=== PATIENT | female | born 1975 | race Caucasian/White ===

== ENCOUNTER 2018-06-13 09:19 | Inpatient (IN) | payer OTHER ==
[~2018-06-13] VITALS: Ht 162.6 cm; Wt 47.1 kg
[2018-06-13 10:05] LABS: Calcium, Ionized (POC) 0.92 mmol/L (1.10-1.46); Chloride (POC) 72 mmol/L (98-108); Creatinine (POC) 0.8 mg/dL (0.6-1.0); Glucose (ISTAT POC) 164 mg/dL (70-99); Hemoglobin (POC) 7.8 g/dL (12.0-16.0); Potassium (POC) <2.0 mmol/L (3.5-5.5); Sodium (POC) 122 mmol/L (135-148); Total CO2 (POC) 30 mmol/L (21-32)
[2018-06-13 10:20] LABS: Magnesium, Blood 1.9 mg/dL (1.6-2.4)
[2018-06-13 10:22] LABS: Hematocrit 22.7 % (33.0-51.0); Hemoglobin 7.8 g/dL (11.5-16.0); Mean Corpuscular HGB 35.5 pg (26.0-34.0); Mean Corpuscular HGB Conc 34.4 g/dL (31.5-36.5); Mean Corpuscular Volume 103 fL (80-100); Platelet Count 349 K/mm3 (150-400); RDW Coefficient Variation 13.7 % (11.7-14.2); RDW Standard Deviation 51.3 fL (35.1-46.3)
[2018-06-13 10:34] LABS: Alanine Aminotransfer (ALT/SGP 17 U/L (12-78); Albumin, Blood 3.1 g/dL (3.4-5.0); Albumin/Globulin Ratio 0.6 (0.8-1.8); Alk Phos 162 U/L (50-136); Anion Gap 17 mmol/L (6-16); Aspartate Aminotrans (AST/SGOT 90 U/L (12-37); Bilirubin, Total 4.6 mg/dL (0.1-1.0); Blood Urea Nitrogen 12 mg/dL (8-24); CO2, Blood 31 mmol/L (21-32); Calcium, Blood 8.8 mg/dL (8.5-10.1); Chloride, Blood 73 mmol/L (98-108); Creatinine, Blood 0.75 mg/dL (0.40-1.00); Globulin, Blood 5.1 g/dL (2.2-4.0); Glomerular Filtration Rate >60 (60-); Glucose, Blood 161 mg/dL (70-99); Potassium, Blood 2.2 mmol/L (3.5-5.5); Sodium, Blood 121 mmol/L (136-145); Total Protein, Blood 8.2 g/dL (6.4-8.2)
[2018-06-13 10:51] LABS: BAND PERCENT MAN 2 % (0-8); BASOPHILS PERCENT MAN 0 % (0-2); EOSINOPHILS PERCENT MAN 0 % (0-6); LYMPHOCYTES ABSOLUTE MAN 0.87 K/mm3 (0.84-5.20); LYMPHOCYTES PERCENT MAN 3 % (21-46); METAMYELOCYTE ABSOLUTE MAN 0.29 K/mm3 (0.00-0.00); METAMYELOCYTE PERCENT MAN 1 % (0-0); MONOCYTES ABSOLUTE MAN 0.87 K/mm3 (0.16-1.47); MONOCYTES PERCENT MAN 3 % (4-13); NEUTROPHILS ABSOLUTE MAN 26.97 K/mm3 (1.96-9.15); SEG NEUTROPHILS PERCENT MAN 91 % (41-73); TOTAL CELLS COUNTED 100
[2018-06-13 12:50] LABS: Source, Urine Clean Catch
[2018-06-13 12:54] LABS: Bilirubin, Urine Neg (Neg); Blood, Urine Neg (Neg); Glucose Qualitative, Urine Neg (Neg); Ketones, Urine Neg (Neg); Leukocyte Esterase, Urine Neg (Neg); Nitrite, Urine Neg (Neg); Protein, Urine 1+ (Neg); Specific Gravity, Urine 1.005 (1.003-1.022); Urobilinogen, Urine NORM (Normal); pH, Urine 6.5 (5.0-8.0)
[2018-06-13 13:10] LABS: Color, Urine Yellow (P-Yellow)
[2018-06-13 13:11] LABS: Appearance, Urine Clear (Clear)
[2018-06-13 13:22] LABS: Percent Saturation 41.3 % (15.0-50.0)
[2018-06-13 13:41] LABS: Thyroid Stimulating Hormone 4.84 uIU/mL (0.360-4.800)
[2018-06-13 14:43] LABS: PCO2 Arterial 37.5 mmHg (35-45); PO2 Arterial 77.3 mmHg (80-100); pH Blood Arterial 7.59 (7.35-7.45)
[2018-06-13 16:53] LABS: International Normalized Ratio 1.46; Prothrombin Time Results 14.7 Sec (9.7-11.5)
[2018-06-13 17:50] LABS: Hematocrit 26.7 % (33.0-51.0); Hemoglobin 9.3 g/dL (11.5-16.0)
[2018-06-13 18:31] LABS: Anion Gap 15 mmol/L (6-16); Blood Urea Nitrogen 10 mg/dL (8-24); Bun/Creatinine Ratio 23.1 (12.0-20.0); CO2, Blood 24 mmol/L (21-32); Chloride, Blood 89 mmol/L (98-108); Creatinine, Blood 0.43 mg/dL (0.40-1.00); Glomerular Filtration Rate >60 (60-); Glucose, Blood 79 mg/dL (70-99); Sodium, Blood 128 mmol/L (136-145)
[2018-06-13 18:33] LABS: Calcium, Blood 6.7 mg/dL (8.5-10.1)
[2018-06-13 19:47] LABS: Source, Urine Catheter
[2018-06-13 19:50] LABS: Bilirubin, Urine Neg (Neg); Blood, Urine Neg (Neg); Glucose Qualitative, Urine Neg (Neg); Ketones, Urine Neg (Neg); Leukocyte Esterase, Urine 1+ (Neg); Nitrite, Urine Neg (Neg); Protein, Urine 2+ (Neg); Urobilinogen, Urine NORM (Normal)
[2018-06-13 20:22] LABS: Appearance, Urine Cloudy (Clear); Color, Urine Amber (P-Yellow)
[2018-06-13 20:23] LABS: Squamous Epithelial Cells Mod /hpf (Few)
[2018-06-13 20:24] LABS: Bacteria Few /hpf; Red Blood Cells, Urine Not Seen /hpf (0-2)
[2018-06-13 20:25] LABS: Mucus Light (0-Heavy)
[2018-06-14 04:19] LABS: BASOPHILS ABSOLUTE AUTO 0.08 K/mm3 (0.00-0.23); BASOPHILS PERCENT AUTO 0 % (0-2); EOSINOPHILS ABSOLUTE AUTO 0.03 K/mm3 (0.00-0.68); EOSINOPHILS PERCENT AUTO 0 % (0-6); Hematocrit 28.2 % (33.0-51.0); Hemoglobin 9.9 g/dL (11.5-16.0); IMMATURE GRAN ABSOLUTE AUTO 0.17 K/mm3 (0.00-0.10); IMMATURE GRAN PERCENT AUTO 1 % (0-1); LYMPHOCYTES ABSOLUTE AUTO 1.51 K/mm3 (0.84-5.20); LYMPHOCYTES PERCENT AUTO 6 % (21-46); MONOCYTES ABSOLUTE AUTO 1.45 K/mm3 (0.16-1.47); MONOCYTES PERCENT AUTO 6 % (4-13); Mean Corpuscular HGB 34.1 pg (26.0-34.0); Mean Corpuscular HGB Conc 35.1 g/dL (31.5-36.5); Mean Platelet Volume 8.9 fL (9.1-12.4); NEUTROPHILS PERCENT AUTO 88 % (41-73); Platelet Count 267 K/mm3 (150-400); RDW Coefficient Variation 19.6 % (11.7-14.2); White Blood Cell Count 26.44 K/mm3 (4.00-11.30)
[2018-06-14 04:33] LABS: Mean Corpuscular Volume 97 fL (80-100)
[2018-06-14 04:34] LABS: International Normalized Ratio 1.44; Prothrombin Time Results 14.5 Sec (9.7-11.5)
[2018-06-14 04:40] LABS: Alanine Aminotransfer (ALT/SGP 12 U/L (12-78); Albumin, Blood 2.1 g/dL (3.4-5.0); Alk Phos 111 U/L (50-136); Anion Gap 9 mmol/L (6-16); Aspartate Aminotrans (AST/SGOT 53 U/L (12-37); Bilirubin, Total 4.3 mg/dL (0.1-1.0); Blood Urea Nitrogen 11 mg/dL (8-24); Bun/Creatinine Ratio 18.4 (12.0-20.0); CO2, Blood 27 mmol/L (21-32); Calcium, Blood 7.5 mg/dL (8.5-10.1); Chloride, Blood 98 mmol/L (98-108); Glomerular Filtration Rate >60 (60-); Glucose, Blood 98 mg/dL (70-99); Magnesium, Blood 1.9 mg/dL (1.6-2.4); Phosphorus, Blood 2.6 mg/dL (2.5-4.9); Potassium, Blood 3.4 mmol/L (3.5-5.5); Sodium, Blood 134 mmol/L (136-145)
[2018-06-14 05:11] LABS: Albumin/Globulin Ratio 0.5 (0.8-1.8)
[2018-06-14 05:21] LABS: Total Protein, Blood 6.1 g/dL (6.4-8.2)
[2018-06-14 11:12] LABS: Automated BF WBC Count 0.045 K/mm3 (0-999); Body Fluid WBC Count 45 /mm3 (0-999)
[2018-06-14 11:20] LABS: Albumin, Body Fluid 1.1 g/dL; Glucose, Body Fluid 103 mg/dL
[2018-06-14 12:11] LABS: Appearance, Body Fluid Clear (Clear); Color, Body Fluid Yellow (None-Yellow)
[2018-06-14 12:12] LABS: RBC Count, Body Fluid 121 /mm3 (0-0)
[2018-06-14 12:13] LABS: Total Cell Count, Body Fluid 100
[2018-06-15 03:28] LABS: BASOPHILS PERCENT AUTO 0 % (0-2); EOSINOPHILS ABSOLUTE AUTO 0.14 K/mm3 (0.00-0.68); EOSINOPHILS PERCENT AUTO 1 % (0-6); Hematocrit 26.7 % (33.0-51.0); IMMATURE GRAN PERCENT AUTO 0 % (0-1); LYMPHOCYTES ABSOLUTE AUTO 1.67 K/mm3 (0.84-5.20); LYMPHOCYTES PERCENT AUTO 7 % (21-46); MONOCYTES ABSOLUTE AUTO 1.17 K/mm3 (0.16-1.47); MONOCYTES PERCENT AUTO 5 % (4-13); Mean Corpuscular HGB 34.5 pg (26.0-34.0); Mean Corpuscular HGB Conc 33.7 g/dL (31.5-36.5); Mean Platelet Volume 8.8 fL (9.1-12.4); NEUTROPHILS ABSOLUTE AUTO 20.17 K/mm3 (1.96-9.15); NEUTROPHILS PERCENT AUTO 86 % (41-73); Platelet Count 217 K/mm3 (150-400); RDW Standard Deviation 74.4 fL (35.1-46.3); Red Blood Cell Count 2.61 M/mm3 (3.80-5.20); White Blood Cell Count 23.35 K/mm3 (4.00-11.30)
[2018-06-15 03:30] LABS: Mean Corpuscular Volume 102 fL (80-100)
[2018-06-15 03:40] LABS: Vancomycin, Trough 7.7 ug/mL (5.0-10.0)
[2018-06-15 03:41] LABS: International Normalized Ratio 1.38
[2018-06-15 03:42] LABS: Alanine Aminotransfer (ALT/SGP 10 U/L (12-78); Albumin, Blood 1.9 g/dL (3.4-5.0); Albumin/Globulin Ratio 0.5 (0.8-1.8); Alk Phos 91 U/L (50-136); Anion Gap 9 mmol/L (6-16); Aspartate Aminotrans (AST/SGOT 38 U/L (12-37); Bilirubin, Total 2.6 mg/dL (0.1-1.0); Blood Urea Nitrogen 4 mg/dL (8-24); Bun/Creatinine Ratio 8.1 (12.0-20.0); CO2, Blood 22 mmol/L (21-32); Calcium, Blood 7.5 mg/dL (8.5-10.1); Chloride, Blood 107 mmol/L (98-108); Globulin, Blood 3.8 g/dL (2.2-4.0); Glomerular Filtration Rate >60 (60-); Glucose, Blood 83 mg/dL (70-99); Potassium, Blood 3.7 mmol/L (3.5-5.5); Sodium, Blood 138 mmol/L (136-145); Total Protein, Blood 5.7 g/dL (6.4-8.2)
[2018-06-15 10:12] LABS: HBSAG SCREEN Negative (Negative); HEP B CORE AB, TOT Negative (Negative)
[2018-06-16 06:07] LABS: Vancomycin, Trough 17.3 ug/mL (5.0-10.0)
[2018-06-16] MEDS ORDERED: DOXY100 PO (13:16)
[2018-06-16] MEDS ORDERED: Keppra750 MG PO (13:17)
[2018-06-16] MEDS ORDERED: LORA.5 PO (13:17)
== END 2018-06-16 15:13 | disposition home health service (06) | DRG 871 ==
LOC: ER 09:19 → ICUE 12:31 → MEDS 12:31 → ICUW 12:31 → ICUE 13:56 → MEDS 06-14 21:52 → ENPENDDIS 06-16 10:00 → MEDS 06-16 15:13
PROVIDERS: Emergency Medicine; Internal Medicine; Internal Medicine Critical Care Medicine; Internal Medicine Gastroenterology
PROC: 30233N1 Transfusion of Nonautologous Red Blood Cells into Peripheral Vein, Percutaneous Approach (ICD-10-PCS; 2018-06-13)
PROC: 05HM33Z Insertion of Infusion Device into Right Internal Jugular Vein, Percutaneous Approach (ICD-10-PCS; 2018-06-15)
PROC: 0DJ08ZZ Inspection of Upper Intestinal Tract, Via Natural or Artificial Opening Endoscopic (ICD-10-PCS; principal; 2018-06-15 16:45)
DX: A41.9 Sepsis, unspecified organism (principal); G93.41 Metabolic encephalopathy; R65.21 Severe sepsis with septic shock; E87.1 Hypo-osmolality and hyponatremia; C78.7 Secondary malignant neoplasm of liver and intrahepatic bile duct; K92.0 Hematemesis; F10.239 Alcohol dependence with withdrawal, unspecified; Z51.5 Encounter for palliative care; E87.6 Hypokalemia; R56.9 Unspecified convulsions; R54 Age-related physical debility; Z85.3 Personal history of malignant neoplasm of breast; K70.31 Alcoholic cirrhosis of liver with ascites; F17.210 Nicotine dependence, cigarettes, uncomplicated; D53.9 Nutritional anemia, unspecified
CPT/HCPCS: 36415; 36430; 36556; 36600; 49083; 51702; 70450; 71045; 71260; 74177; 80047; 80048; 80053; 80202; 81001; 82040; 82042; 82105; 82140; 82272; 82330; 82607; 82728; 82746; 82803; 82945; 83540; 83550; 83605; 83735; 84100; 84132; 84443; 85014; 85018; 85025; 85610; 85651; 85730; 86317; 86704; 86708; 86850; 86900; 86901; 86923; 87070; 87086; 87205; 87340; 87493; 89051; 93005; 93010; 96361; 96365; 96367; 96375; 99285-25; C1751; C9113; J0610; J0696; J1953; J2060; J2370; J3010; J3370; J3411; J3475; J3480; J7030; J7040; J7042; J7050; J7060; J7120; P9016; Q9967

== ENCOUNTER 2018-07-17 15:06 | Day surgery (SDC) | payer OTHER ==
[~2018-07-17 15:06] MED LIST: DOXY100 PO; Keppra750 MG PO; LORA.5 PO
== END 2018-07-17 23:02 | disposition home or self-care (01) ==
LOC: US 15:06
DX: R18.8 Other ascites (principal)
CPT/HCPCS: 49083